=== PATIENT | female | born 1985 | race Caucasian/White ===

== ENCOUNTER 2016-12-05 18:01 | Inpatient (IN) | payer SELFPAY ==
[2016-12-05] MEDS ORDERED: LACTATED RINGERS 1,000 ML ONE (18:55)
[2016-12-05] MEDS ORDERED: NARCAN 0.4 MG/1 ML IV PRN (18:58)
[2016-12-05] MEDS ORDERED: BRETHINE IVP PRN (18:58)
[2016-12-05] MEDS ORDERED: MINERAL OIL PO PRN (18:58)
[2016-12-05] MEDS ORDERED: ePHEDrine SULFATE IV PRN (18:58)
[2016-12-05] MEDS ORDERED: ZOFRAN IV PRN (18:58)
[2016-12-05] MEDS ORDERED: XYLOCAINE 2% INFILTRATI ONE (18:58)
[2016-12-05] MEDS ORDERED: PITOCin/NS 20 UNIT/1000ML DRIP 20 UNITS/1,000 ML BAG IV SCH (19:00)
[2016-12-05] MEDS ORDERED: BRETHINE SUB-Q PRN (19:03)
[2016-12-05 19:45] LABS: Hematocrit 33.5 % (30.3-42.9); Hemoglobin 10.6 gm/dl (10.1-14.3); Mean Corpuscular HGB Conc 32 % (30-34); Mean Corpuscular Volume 78 fl (79-97); Platelet Count 197 K/mm3 (140-440); Red Blood Count 4.33 M/mm3 (3.65-5.03); Red Cell Distribution Width 15.9 % (13.2-15.2); White Blood Count 16.4 K/mm3 (4.5-11.0)
[2016-12-05 19:47] LABS: Mean Corpuscular Hemoglobin 25 pg (28-32)
--- NOTE | 2016-12-05 19:54 | History and Physical Report ---
History of Present Illness Date of examination: 12/05/16 Date of admission: 12/05/16 19:17 Chief complaint: Intense Labor Pains History of present illness: Early entry to care, Elevated 1 hour GTT (144); Refused 3hour GTT and did not follow blood glucose levels throughout the . Past History Past Medical History: no pertinent history Past Surgical History: no surgical history Family/Genetic History: none Social history: no significant social history - Obstetrical History Expected Date of Delivery: 11/30/16 Actual Gestation: 40 Week(s) 5 Day(s) : 3 Para: 2 Hx # Term Pregnancies: 2 Number of Living Children: 2 #1 Infant Gender: Male year: Birthweight: 3.374 kg Method of Delivery: Vaginal Gestational age at delivery: 40 Complications: none #2 Infant Gender: Male year: Method of Delivery: Vaginal Complications: none Medications and Allergies Allergies Allergy/AdvReac Type Severity Reaction Status Date / Time No Known Allergies Allergy Verified 11/17/13 05:41 Home Medications Medication Instructions Recorded Confirmed Last Taken Type No Known Home Medications [No 11/18/13 11/18/13 Unknown History Reported Home Medications] Active Meds: Active Medications Lactated Ringer's (Lactated Ringers) 1,000 mls @ 125 mls/hr IV DIRECT JOSE Oxytocin/Sodium Chloride (Pitocin/Ns 20 Unit/1000ml Drip) 20 units in 1,000 mls @ 125 mls/hr IV DIRECT JOSE Mineral Oil (Mineral Oil) 30 ml PO QHS PRN PRN Reason: Constipation Naloxone HCl (Narcan 0.4 Mg/1 Ml) 0.1 mg IV Q2MIN PRN PRN Reason: Res Rate </= 8 or 02 SAT < 92% Ondansetron HCl (Zofran) 4 mg IV Q8H PRN PRN Reason: Nausea And Vomiting Review of Systems All systems: negative - Vital Signs Vital signs: Vital Signs Pulse Pulse Ox 50 L 82 L 12/05/16 19:00 12/05/16 19:00 Temp Pulse Resp BP Pulse Ox 86 137/81 98 12/05/16 19:21 12/05/16 19:04 12/05/16 19:21 - Physical Exam Breasts: Positive: normal Cardiovascular: Regular rate Lungs: Positive: Clear to auscultation, Normal air movement Abdomen: Positive: normal appearance, normal bowel sounds Genitourinary (Female): Positive: normal external genitalia, normal perenium Vagina: Positive: normal moisture Uterus: Positive: enlarged Anus/Rectum: Positive: normal perianal skin Extremities: Positive: normal - Obstetrical FHR: category 1 Uterine Contraction Monitor Mode: External Cervical Dilatation: 8 (Large amount of clear fluid upon AROM @ 1945 ) Cervical Effacement Percentage: 100 station: -1 Uterine Contraction Pattern: Regular Uterine Tone Measurement Phase: Contraction Uterine Contraction Intensity: Moderate Results Result Diagrams: 12/05/16 19:20 Abnormal lab results 12/05/16 Range/Units 19:20 WBC 16.4 H (4.5-11.0) K/mm3 MCV 78 L (79-97) fl MCH 25 L (28-32) pg RDW 15.9 H (13.2-15.2) % All other labs normal. Assessment and Plan A: IUP @ 40 5/7 Weeks Active labor GBS Negative Category I Tracing P: Admit to L&D per routine orders AROM
[2016-12-05] MEDS ORDERED: LACTATED RINGERS 1,000 ML IV SCH (20:00)
[2016-12-05] MEDS ORDERED: NORCO 5/325 PO PRN (20:28)
[2016-12-05] MEDS ORDERED: BENADRYL PO PRN (20:28)
[2016-12-05] MEDS ORDERED: LANSINOH TP PRN (20:28)
[2016-12-05] MEDS ORDERED: TUCKS PAD TP PRN (20:28)
[2016-12-05] MEDS ORDERED: PHENERGAN PO PRN (20:28)
[2016-12-05] MEDS ORDERED: MILK OF MAGNESIA PO PRN (20:28)
[2016-12-05] MEDS ORDERED: DULCOLAX PR PRN (20:28)
[2016-12-05] MEDS ORDERED: DERMOPLAST TP PRN (20:28)
--- NOTE | 2016-12-05 20:35 | Procedure Note ---
OB Delivery Note - Delivery Date of Delivery: 12/05/16 (2014) Surgeon: CESLO WATSON Estimated blood loss: 200cc - Vaginal Delivery presentation: vertex Delivery position: OA Intrapartum events: none Delivery induction: none Delivery augmentation: rupture of membranes Delivery monitor: external FHT, external uterine Route of delivery: Delivery placenta: spontaneous Delivery cord: 3 umbilical vessels Episiotomy: none Delivery laceration: none Anesthesia: none Delivery comments: of a live 6'13 female infant over a intact perineum without pain control with Apgars of 9 and 9 at 2014 on 12/05/2016. Infant directly to maternal abd/ chest, skin to skin contact. Spontaneous delivery of placenta complete and intact with [place] side presenting at 2018. Fundus is firm and midline located 4 below the U. Lochia is scant. Delayed cord clamping and cutting; Cord cut by father of the baby. Cord blood collected; Placenta discarded. - A at 1 minute: 9 at 5 minutes: 9 Infant Gender: Female (6'13)
[2016-12-05] MEDS ORDERED: SODIUM CHLORIDE FLUSH SYRINGE 10 ML IV NR (21:00)
[2016-12-06] MEDS: MOTRIN PO SCH ×3 (01:47→18:00)
--- NOTE | 2016-12-06 02:42 | Progress Note ---
Assessment and Plan A: PP Day #1 Stable P: Follow Routine Orders D/C Home today per patient request RTO in 6 weeks Subjective - Subjective Date of service: 12/06/16 Interval history: Early entry to care, Elevated 1 hour GTT (144); Refused 3hour GTT and did not follow blood glucose levels throughout the . Patient reports: appetite normal, voiding normally, pain well controlled, flatus , ambulating normally : doing well Objective - Vital Signs Latest vital signs: Vital Signs Temp Pulse Pulse Resp BP BP Pulse Ox 12/06/16 01:40 98 F 79 16 109/62 12/05/16 22:28 72 99 12/05/16 22:26 64 99 12/05/16 22:21 65 97 12/05/16 22:16 76 99 12/05/16 22:13 87 99 12/05/16 22:10 72 98 12/05/16 22:05 89 97 12/05/16 22:03 86 99 12/05/16 22:02 68 96 12/05/16 22:00 90 91 12/05/16 21:58 67 97 12/05/16 21:57 64 99 12/05/16 21:52 68 98 12/05/16 21:47 65 99 12/05/16 21:46 65 98 12/05/16 21:40 72 99 12/05/16 21:35 64 98 12/05/16 21:33 67 99 12/05/16 21:32 65 99 12/05/16 21:29 66 99 12/05/16 21:24 59 L 99 12/05/16 21:23 61 99 12/05/16 21:20 60 99 12/05/16 21:18 72 99 12/05/16 21:17 73 99 12/05/16 21:16 60 99 12/05/16 21:11 91 H 83 L 12/05/16 21:10 75 90 12/05/16 21:09 73 79 L 12/05/16 21:08 67 91 12/05/16 21:07 79 92 12/05/16 21:06 63 91 12/05/16 21:05 127 H 69 L 12/05/16 21:04 70 99 12/05/16 21:02 62 95 12/05/16 21:01 79 93 12/05/16 21:00 129 H 82 L 12/05/16 20:51 75 128/60 12/05/16 20:36 76 120/56 12/05/16 20:33 97.6 F 18 12/05/16 20:21 79 133/74 12/05/16 19:55 97.8 F 18 12/05/16 19:21 86 98 12/05/16 19:16 81 99 12/05/16 19:06 67 98 12/05/16 19:04 71 137/81 12/05/16 19:01 110 H 81 L 12/05/16 19:00 50 L 82 L Intake and Output 12/05/16 12/05/16 12/06/16 14:59 22:59 06:59 Other: Weight 58.967 kg Estimated Blood Loss 200 Patient Weight 12/06/16 06:59 Weight 58.967 kg - Exam Breasts: Present: normal Cardiovascular: Present: Regular rate Lungs: Present: Clear to auscultation, Normal air movement Abdomen: Present: normal appearance, soft, normal bowel sounds Uterus: Present: normal, firm, fundal height below umbilicus Extremities: Present: normal - Labs Labs: Abnormal lab results 12/05/16 Range/Units 19:20 WBC 16.4 H (4.5-11.0) K/mm3 MCV 78 L (79-97) fl MCH 25 L (28-32) pg RDW 15.9 H (13.2-15.2) %
--- NOTE | 2016-12-06 02:45 | Discharge Summary ---
Providers - Providers Date of Admission: 12/05/16 19:17 Date of discharge: 12/06/16 Attending physician: ISHAN VILLATORO MD Primary care physician: ISHAN VILLATORO MD Hospitalization Reason for admission: active labor Delivery: Episiotomy: none Laceration: none Other procedures: none complications: none Discharge diagnosis: IUP at term delivered [place] baby: female Condition at discharge: Good Disposition: DISCHARGED TO HOME OR SELFCARE Plan - Provider Discharge Summary Activity: routine, no sex for 6 weeks, no heavy lifting 4 weeks, no strenuous exercise Diet: routine Instructions: routine Additional instructions: [] Smoking cessation referral if applicable(refer to patient education folder for contact #) [] Refer to [facility]'s [facility] Booklet Call your doctor immediately for: * Fever > 100.5 * Heavy vaginal bleeding ( >1 pad per hour) * Severe persistent headache * Shortness of breath * Reddened, hot, painful area to leg or breast * Drainage or odor from incision. * Keep incision clean and dry at all times and follow doctor's instructions regarding bathing/showering - Follow up plan Follow up: ZHANE DURANT CNM [Advanced Practice Nurse] - 6 Weeks
[2016-12-06 08:22] LABS: Hematocrit 30.3 % (30.3-42.9); Hemoglobin 9.4 gm/dl (10.1-14.3)
[2016-12-07] MEDS: MOTRIN PO SCH ×2 (00:40→06:02)
[2016-12-07 12:36] VITALS: BP 114/70
== END 2016-12-07 11:50 | disposition home or self-care (01) | DRG 775 ==
LOC: TRG 18:01 → LD 19:17 → OB 22:27
PROVIDERS: ADMIT Obstetrics & Gynecology; ATTEND Obstetrics & Gynecology
PROC: 10E0XZZ Delivery of Products of Conception, External Approach (ICD-10-PCS; principal; 2016-12-05)
DX: O80 Encounter for full-term uncomplicated delivery (principal); Z3A.40 40 weeks gestation of pregnancy; Z37.0 Single live birth
CPT/HCPCS: 36415; 82962; 85014; 85018; 85027; 86850; 86900; 86901; 99211; G0463; J2590; J7120

== ENCOUNTER 2021-03-16 03:56 | Inpatient (IN) | payer MEDICAID, OTHER ==
[2021-03-16] MEDS ORDERED: TERBUTALINE 1 MG/1 ML INJ SUB-Q PRN (05:24)
[2021-03-16] MEDS ORDERED: LIDOCAINE (2%) 20 MG/1 ML VIAL 20 ML MDV INFILTRATI ONE (05:24)
[2021-03-16] MEDS ORDERED: MINERAL OIL 30 ML ORAL LIQD PO PRN (05:24)
[2021-03-16] MEDS ORDERED: ePHEDrine SULFATE 50 MG/1 ML INJ IV PRN (05:24)
[2021-03-16] MEDS ORDERED: LACTATED RINGERS 1,000 ML IV SCH (05:30)
[2021-03-16] MEDS ORDERED: OXYTOCIN DRIP 30 UNITS/500 ML BAG IV SCH ×3 (06:00→11:00)
[2021-03-16 06:24] LABS: Hematocrit 32.5 % (30.3-42.9); Hemoglobin 10.8 gm/dl (10.1-14.3); Mean Corpuscular HGB Conc 33 % (30-34); Mean Corpuscular Volume 80 fl (79-97); Platelet Count 192 K/mm3 (140-440); Red Blood Count 4.06 M/mm3 (3.65-5.03); Red Cell Distribution Width 15.3 % (13.2-15.2)
[2021-03-16] MEDS: BUTORPHANOL 2 MG/1 ML INJ IV PRN ×2 (06:31→09:48)
--- NOTE | 2021-03-16 09:05 | History and Physical Report ---
History of Present Illness Date of examination: 03/16/21 Date of admission: 03/16/21 08:06 Chief complaint: "I'm having contractions" History of present illness: 36 y/o female presents to [facility] @ 40.6 wks with c/o uc times several hours. Pt denies LOF or VB and admits to adq . She initiated her pnc @ [facility] at 12 wks. Pt had an uneventful preg. Med/surg/social hx is unremarkable. Family hx of Heart disease and HTN. Pt was found to be in active labor and was admitted to L&D for delivery. GBS is neg. Past History Past Medical History: no pertinent history Past Surgical History: no surgical history Family/Genetic History: heart disease, hypertension Social history: no significant social history - Obstetrical History Expected Date of Delivery: 03/10/21 Actual Gestation: 40 Week(s) 6 Day(s) : 4 Para: 3 Hx # Term Pregnancies: 3 Number of Living Children: 3 Medications and Allergies Allergies Allergy/AdvReac Type Severity Reaction Status Date / Time No Known Allergies Allergy Verified 11/17/13 05:41 Home Medications Medication Instructions Recorded Confirmed Last Taken Type One Daily Tablet 1 tab PO DAILY 03/16/21 03/16/21 4 Days Ago History ~03/12/21 Active Meds: Active Medications Butorphanol Tartrate (Butorphanol 2 Mg/1 Ml Inj) 2 mg IV Q2H PRN PRN Reason: Pain , Severe (7-10) Last Admin: 03/16/21 06:31 Dose: 2 mg Documented by: Ephedrine Sulfate (Ephedrine Sulfate 50 Mg/1 Ml Inj) 10 mg IV Q2M PRN PRN Reason: Hypotension Lactated Ringer's (Lactated Ringers) 1,000 mls @ 125 mls/hr IV DIRECT JOSE Last Admin: 03/16/21 06:30 Dose: 125 mls/hr Documented by: Oxytocin/Sodium Chloride (Pitocin/Ns 30 Unit/500ml) 30 units in 500 mls @ 40 mls/hr IV TITR JOSE; Protocol Mineral Oil (Mineral Oil 30 Ml Oral Liqd) 30 ml PO QHS PRN PRN Reason: Constipation Terbutaline Sulfate (Terbutaline 1 Mg/1 Ml Inj) 0.25 mg SUB-Q ONCE PRN PRN Reason: Hyperstimulation/Hypertonicity Review of Systems All systems: negative Eyes: deferred Ears, nose, mouth and throat: deferred Breasts: normal Genitourinary: normal appearance Rectal Exam: deferred - Vital Signs Vital signs: Vital Signs Pulse Resp BP 71 16 111/71 03/16/21 04:50 03/16/21 04:50 03/16/21 04:50 Temp Pulse Resp BP Pulse Ox 98 F 68 20 108/65 99 03/16/21 08:03 03/16/21 08:57 03/16/21 08:03 03/16/21 08:15 03/16/21 08:57 - Physical Exam Breasts: Positive: normal Abdomen: Positive: normal appearance, soft, normal bowel sounds, other (gravid) Genitourinary (Female): Positive: normal external genitalia, normal perenium Vulva: both: normal Vagina: Positive: normal moisture Uterus: Positive: enlarged, normal contour, other (gravid) Adnexa: both: normal Anus/Rectum: Positive: normal perianal skin Extremities: Positive: normal - Obstetrical FHR: auscultation normal, category 1 Uterine Contraction Monitor Mode: External Cervical Dilatation: 5 Cervical Effacement Percentage: 50 station: -2 Uterine Contraction Pattern: Irregular Uterine Tone Measurement Phase: Resting Uterine Contraction Intensity: Moderate Results Result Diagrams: 03/16/21 05:45 Abnormal lab results 03/16/21 Range/Units 05:45 WBC 12.5 H (4.5-11.0) K/mm3 MCH 27 L (28-32) pg RDW 15.3 H (13.2-15.2) % All other labs normal. Assessment and Plan A: IUP@ 40.6 wks GBS neg P: Admit to L&D Continuous monitoring Start Pitocin per protocal Pain med/Epidural prn AROM Anticipate
[2021-03-16 10:27] LABS: Hepatitis C Virus Antibody Non-Reactive (NonReactive)
[2021-03-16] MEDS ORDERED: fentaNYL 100 MCG/2 ML INJ IV PRN (10:39)
[2021-03-16] MEDS ORDERED: MAGNESIUM HYDROXIDE (MOM) ORAL LIQD UDC PO PRN (14:28)
[2021-03-16] MEDS ORDERED: PROMETHAZINE 25 MG RECT SUPP PR PRN (14:28)
[2021-03-16] MEDS ORDERED: diphenhydrAMINE 25 MG CAP PO PRN (14:28)
[2021-03-16] MEDS ORDERED: LANOLIN/ZINC/DIMETHICONE (LANSINOH) 7 GM TP PRN (14:28)
[2021-03-16] MEDS ORDERED: PROMETHAZINE 25 MG TAB PO PRN (14:28)
[2021-03-16] MEDS ORDERED: WITCH HAZEL/ GLYCERIN PAD TP PRN (14:28)
[2021-03-16] MEDS ORDERED: ONDANSETRON 4 MG/2 ML INJ IV PRN (14:28)
--- NOTE | 2021-03-16 14:34 | Procedure Note ---
OB Delivery Note - Delivery Date of Delivery: 03/16/21 Surgeon: ANTONY HIGH Estimated blood loss: 100cc - Vaginal Delivery presentation: vertex Delivery position: OA Intrapartum events: meconium, mult.variable deceleratio Delivery induction: none Delivery augmentation: rupture of membranes, pitocin Delivery monitor: external FHT, external uterine Route of delivery: Delivery placenta: spontaneous Delivery cord: 3 umbilical vessels, other (body cord x 1) Episiotomy: none Delivery laceration: none Anesthesia: intravenous Delivery comments: Called to for delivery. SVE 10/100/+1 and pt was pushing. of a viable crying male infant over an intact perineum. Spontaneous del of head and shoulders thru thick transitional mec. Body cord x 1 was unraveled after del. was placed on mom's chest/abd for skin to skin bonding while NICU dried and stimulated baby. Delayed cord clamping x 90 sec. Cord was clamped x 2 and FOB was allowed to cut the cord. was taken to infant warmer by NICU nurse for an asses. 8/9. Cord blood was obtained. Spontaneous delivery of an intact placenta with CVX3. FF@ u1 with fundal massage and IV Pitocin. An exploration of tears revealed none. Mom and baby was left in stable condition with nurses. EBL 100cc FW 3090 Gms. - Infant A at 1 minute: 8 at 5 minutes: 9 Gender: Male (FW 3090 Gms)
[2021-03-16] MEDS: IBUPROFEN 600 MG TAB PO SCH (15:15)
[2021-03-16] MEDS ORDERED: ACETAMINOPHEN 325 MG TAB PO PRN (18:19)
[2021-03-17] MEDS: IBUPROFEN 600 MG TAB PO SCH ×5 (01:53→23:46)
[2021-03-17 03:27] LABS: Hematocrit 28.1 % (30.3-42.9); Hemoglobin 9.1 gm/dl (10.1-14.3)
[2021-03-17] MEDS: FERROUS SULFATE 325 MG TAB PO SCH ×2 (12:23→22:30)
--- NOTE | 2021-03-17 13:01 | Progress Note ---
Assessment and Plan A: day 1 S/P . Anemia. Left calf pain. P: Venous doppler US of LLE. Iron supplementation. Subjective - Subjective Date of service: 03/17/21 Principal diagnosis: day 1 S/P Interval history: Complains of left calf pain; venous doppler US ordered of LLE. Denies cough, chest pain, or shortness of breath. Patient reports: appetite normal, voiding normally, pain well controlled, flatus, ambulating normally, no dizzy ambulation, no nauseated : doing well Objective - Vital Signs Latest vital signs: Vital Signs Temp Pulse Resp BP BP Pulse Ox 03/17/21 09:19 16 03/17/21 08:35 97.9 F 68 18 103/50 98 03/17/21 00:31 98.0 F 61 18 110/48 96 03/16/21 20:17 98.0 F 73 18 100/54 96 03/16/21 18:31 18 03/16/21 15:50 99.5 F 64 18 103/49 96 03/16/21 15:01 71 98 03/16/21 14:56 80 98 03/16/21 14:51 72 97/55 96 03/16/21 14:46 69 97 03/16/21 14:41 74 97 03/16/21 14:36 65 104/56 97 03/16/21 14:31 66 98 03/16/21 14:27 98.2 F 16 03/16/21 14:26 69 97 03/16/21 14:21 71 100/59 98 03/16/21 14:16 85 98 03/16/21 14:11 85 98 03/16/21 14:06 77 106/58 98 03/16/21 14:01 82 99 03/16/21 13:56 73 98 03/16/21 13:51 90 107/52 99 03/16/21 13:46 88 99 03/16/21 13:42 98.5 F 95 H 18 116/56 03/16/21 13:41 86 99 03/16/21 13:36 77 99 03/16/21 13:31 97 H 100 03/16/21 13:26 107 H 99 03/16/21 13:25 25 L 89 03/16/21 13:21 107 H 99 03/16/21 13:20 67 84 03/16/21 13:16 94 H 100 03/16/21 13:11 83 100 03/16/21 13:06 85 99 03/16/21 13:01 107 H 100 Intake and Output 03/16/21 03/17/21 03/17/21 23:59 07:59 15:59 Intake Total 300 500 240 Output Total 600 Balance -300 500 240 Intake: Oral 200 240 Intake, Free Water 300 300 Output: Urine 600 Void 600 Other: Total, Intake Amount 200 240 Total, Output Amount 600 # Voids Void 1 1 1 - Exam Cardiovascular: Present: Regular rate Lungs: Present: Clear to auscultation Abdomen: Present: normal appearance, soft. Absent: distention, tenderness, guarding, rigidity Uterus: Present: normal, firm, fundal height below umbilicus. Absent: bogginess, tenderness Extremities: Present: other (LLE pain (calf pain); no edema or erythema) - Labs Labs: Abnormal lab results 03/17/21 Range/Units 02:53 Hgb 9.1 L (10.1-14.3) gm/dl Hct 28.1 L (30.3-42.9) %
--- NOTE | 2021-03-17 16:33 | Vascular Lab Report ---
DUPLEX DOPPLER LOWER EXTREMITY VEINS, RIGHT INDICATION: rt.calf pain. TECHNIQUE: Duplex doppler imaging was performed through the veins of the right lower extremity using venous comp ression and other maneuvers. COMPARISON: No relevant prior imaging study available. FINDINGS: Right Common femoral vein: Negative. Right Superficial femoral vein: Negative. Right Popliteal vein: Negative. Right Calf veins: Negative. Additional findings: None.. IMPRESSION: Negative for DVT. Signer Name: Pete Gilbert MD Signed: 03/17/2021 4:29 PM Workstation Name: [id number]
[2021-03-18] MEDS: IBUPROFEN 600 MG TAB PO SCH (06:20)
--- NOTE | 2021-03-18 07:28 | Progress Note ---
Assessment and Plan A: day 2 S/P . Anemia. P: Discharge patient home today. Discussed with patient discharge instructions and warning signs. Advised patient to continue taking her vitamin and iron supplements at home. Advised patient to avoid lifting, intercourse/sexual activity, housework. Advised patient to follow up at [facility] in 6 weeks. Patient voiced understanding of all instructions. Subjective - Subjective Date of service: 03/18/21 Principal diagnosis: day 2 S/P Interval history: Patient states left leg pain has completely resolved. Venous doppler US of LLE showed no evidence of DVT. Patient denies cough, shortness of breath, chest pain, headache, or any other problems. Patient desires to be discharged to home today. Patient reports: appetite normal, voiding normally, pain well controlled, flatus, ambulating normally, no dizzy ambulation, no nauseated Rickreall: doing well Objective - Vital Signs Latest vital signs: Vital Signs Temp Pulse Resp BP BP Pulse Ox 03/17/21 23:44 98.6 F 64 18 113/49 95 03/17/21 18:57 16 03/17/21 17:12 98.3 F 61 16 112/58 98 03/17/21 14:33 16 03/17/21 09:19 16 03/17/21 08:35 97.9 F 68 18 103/50 98 Intake and Output 03/17/21 03/17/21 03/18/21 15:59 23:59 07:59 Intake Total 240 1320 Balance 240 1320 Intake: Oral 240 720 Intake, Free Water 600 Other: Total, Intake Amount 240 120 # Voids Void 1 1 - Exam Cardiovascular: Present: Regular rate Lungs: Present: Clear to auscultation Abdomen: Present: normal appearance, soft, normal bowel sounds. Absent: distention, tenderness, guarding, rigidity Uterus: Present: normal, firm, fundal height below umbilicus. Absent: bogginess, tenderness Extremities: Present: normal. Absent: tenderness, edema
--- NOTE | 2021-03-18 07:30 | Discharge Summary ---
Providers - Providers Date of Admission: 03/16/21 08:06 Date of discharge: 03/18/21 Attending physician: KASSIDY JIMENEZ MD Primary care physician: KASSIDY JIMENEZ MD Hospitalization Reason for admission: active labor Delivery: Episiotomy: none Laceration: none Other procedures: none complications: none Discharge diagnosis: IUP at term delivered baby: male Pertinent studies: Labs, US. Hospital course: Stable hospital course. Condition at discharge: Good Disposition: DC-01 TO HOME OR SELFCARE - Discharge Diagnoses (1) Term delivered Status: Acute (2) Anemia Status: Acute Plan - Provider Discharge Summary Activity: routine, no sex for 6 weeks, no heavy lifting 4 weeks, no strenuous exercise Diet: routine Instructions: routine Additional instructions: Continue taking your vitamin and iron supplement at home. Call your doctor immediately for: * Fever > 100.5 * Heavy vaginal bleeding ( >1 pad per hour) * Severe persistent headache * Shortness of breath * Reddened, hot, painful area to leg or breast - Follow up plan Follow up: KASSIDY JIMENEZ MD [Primary Care Provider] - 6 Weeks
[2021-03-18 12:13] VITALS: BP 118/54
== END 2021-03-18 12:16 | disposition home or self-care (01) | DRG 807 ==
LOC: TRG 03:56 → APU 04:13 → LD 07:59 → TRG 08:06 → OB 15:55
PROVIDERS: ADMIT Obstetrics & Gynecology; ATTEND Obstetrics & Gynecology
PROC: 10E0XZZ Delivery of Products of Conception, External Approach (ICD-10-PCS; principal; 2021-03-16)
DX: O77.0 Labor and delivery complicated by meconium in amniotic fluid (principal); Z37.0 Single live birth; Z3A.40 40 weeks gestation of pregnancy; O76 Abnormality in fetal heart rate and rhythm complicating labor and delivery; O69.89X0 Labor and delivery complicated by other cord complications, not applicable or unspecified; O90.81 Anemia of the puerperium; D64.9 Anemia, unspecified; O90.89 Other complications of the puerperium, not elsewhere classified; M79.662 Pain in left lower leg; Z20.822 Contact with and (suspected) exposure to COVID-19
CPT/HCPCS: 36415; 59025; 85014; 85018; 85027; 86592; 86706; 86762; 86803; 86850; 86900; 86901; 87806; G0378; J0595; J7120; U0003